=== PATIENT | female | born 1980 | race American Indian/Alaskan Native ===

== ENCOUNTER 2018-12-22 13:22 | Emergency (ER) | payer MEDICAID ==
[2018-12-22 13:54] VITALS: BP 146/71
[2018-12-22 15:12] LABS: Basophils % (Auto) 0.2 % (0.0-1.8); Eosinophils # (Auto) 0.1 K/mm3 (0.0-0.4); Eosinophils % (Auto) 0.4 % (0.0-4.3); Hematocrit 40.3 % (30.3-42.9); Hemoglobin 13.1 gm/dl (10.1-14.3); Mean Corpuscular HGB Conc 33 % (30-34); Mean Corpuscular Volume 91 fl (79-97); Monocytes # (Auto) 0.6 K/mm3 (0.0-0.8); Monocytes % (Auto) 3.8 % (0.0-7.3); Platelet Count 272 K/mm3 (140-440); Red Blood Count 4.45 M/mm3 (3.65-5.03); Red Cell Distribution Width 14.2 % (13.2-15.2)
[2018-12-22 15:35] LABS: Creatine Kinase MB 1.4 ng/mL (0.0-4.0)
[2018-12-22 15:39] LABS: Alanine Aminotransferase 16 units/L (7-56); Albumin 3.8 g/dL (3.9-5); BUN/Creatinine Ratio 11; Blood Urea Nitrogen 8 mg/dL (7-17); Hemolysis Index 2
[2018-12-22 15:40] LABS: Bilirubin,Direct < 0.2 mg/dL (0-0.2)
--- NOTE | 2018-12-22 15:56 | Cat Scan Report ---
FINAL REPORT PROCEDURE: CT HEAD/BRAIN WO CON TECHNIQUE: Computerized tomography of the head was performed without contrast material. HISTORY: head injury COMPARISON: No prior studies are available for comparison. FINDINGS: No CT evidence of intracranial mass, hemorrhage, acute territorial infarction, or hydrocephalus. The intracranial arteries are symmetric in density. Calvarium is intact. Visualized paranasal sinuses and mastoids are aerated. There is a frontal scalp laceration. IMPRESSION: No CT evidence of acute intracranial abnormality
--- NOTE | 2018-12-22 16:01 | Cat Scan Report ---
FINAL REPORT PROCEDURE: CT CERVICAL SPINE WO CON TECHNIQUE: Computerized tomography of the cervical spine was performed from the skull base to T1 wit hout contrast material. HISTORY: head injury COMPARISON: No prior studies are available for comparison. FINDINGS: The vertebral body heights and alignment are maintained. No acute fracture or subluxation is seen. No focal osseous lesions are identified. IMPRESSION: No acute abnormality is seen.
[2018-12-22] MEDS ORDERED: XYLOCAINE 1%/ EPI 1:100,000 INFILTRATI ONE (16:18)
[2018-12-22] MEDS ORDERED: BOOSTRIX IM ONE (16:19)
[2018-12-22] MEDS: TENIVAC IM ONE ×2 (16:25→16:30)
--- NOTE | 2018-12-22 16:37 | Emergency Department Report ---
ED General Adult HPI - General Chief complaint: Head Injury Stated complaint: LACERATION Time Seen by Provider: 12/22/18 14:38 Source: patient, police, EMS Mode of arrival: Wheelchair Limitations: No Limitations - History of Present Illness Initial comments: This is a 38-year-old female who states she has a bipolar disorder. Apparently she had a verbal altercation with a foreign law consultant in [facility]. This eventually led to detain him. The patient was placed in the back of the squad car. The officer stated that the patient hit her head against the window of the vehicle. This resulted in a laceration. There was no observed loss of consciousness. Patient was somewhat agitated on arrival. However she told me that she was able to calm herself down and did do so. -: Gradual Location: head Associated Symptoms: denies other symptoms - Related Data Previous Rx's Medication Instructions Recorded Last Taken Type Azithromycin [Zithromax TAB] 500 mg PO QDAY #2 tablet 10/10/18 Unknown Rx Allergies Allergy/AdvReac Type Severity Reaction Status Date / Time levofloxacin [From Levaquin] Allergy Unknown Verified 10/10/18 13:04 lorazepam [From Ativan] Allergy Unknown Verified 10/10/18 13:04 Penicillins Allergy Unknown Verified 10/10/18 13:04 risperidone [From Risperdal] Allergy Unknown Verified 10/10/18 13:04 ziprasidone [From Geodon] Allergy Unknown Verified 10/10/18 13:04 ED Review of Systems ROS: Stated complaint: LACERATION Other details as noted in HPI Constitutional: denies: chills, fever Eyes: denies: eye pain, eye discharge, vision change ENT: denies: ear pain, throat pain Respiratory: denies: cough, shortness of breath, wheezing Cardiovascular: denies: chest pain, palpitations Endocrine: no symptoms reported Gastrointestinal: denies: abdominal pain, nausea, diarrhea Genitourinary: denies: urgency, dysuria, discharge Musculoskeletal: denies: back pain, joint swelling, arthralgia Skin: denies: rash, lesions Neurological: denies: headache, weakness, paresthesias Psychiatric: as per HPI (bipolar disorder). denies: auditory hallucinations, visual hallucinations (no active hallucinosis), homicidal thoughts, suicidal thoughts Hematological/Lymphatic: denies: easy bleeding, easy bruising ED Past Medical Hx - Past Medical History Hx Psychiatric Treatment: Yes (bipolar, schizophrenia,anxiety,depression) - Surgical History Additional Surgical History: tubiligation, breast reduction - Social History Smoking Status: Current Every Day Smoker Substance Use Type: None - Medications Home Medications: Home Medications Medication Instructions Recorded Confirmed Last Taken Type Azithromycin [Zithromax TAB] 500 mg PO QDAY #2 tablet 10/10/18 Unknown Rx ED Physical Exam - General Limitations: Other (psychiatric disorder) General appearance: alert, anxious (bit agitated), obese - Head Head exam: Present: normocephalic, other (there is a 3 cm linear laceration midline forehead into subcutaneous tissue without foreign body) - Eye Eye exam: Present: normal appearance. Absent: PERRL, EOMI - ENT ENT exam: Present: mucous membranes moist - Neck Neck exam: Present: normal inspection. Absent: tenderness, meningismus - Respiratory Respiratory exam: Present: normal lung sounds bilaterally. Absent: respiratory distress - Cardiovascular Cardiovascular Exam: Present: regular rate, normal rhythm. Absent: systolic murmur, diastolic murmur, rubs, gallop - GI/Abdominal GI/Abdominal exam: Present: soft, normal bowel sounds. Absent: distended, tenderness, guarding, rebound - Extremities Exam Extremities exam: Present: normal inspection - Back Exam Back exam: Present: normal inspection - Neurological Exam Neurological exam: Present: alert, oriented X3, CN II-XII intact. Absent: motor sensory deficit - Psychiatric Psychiatric exam: Present: agitated, anxious - Skin Skin exam: Present: warm, dry, intact, normal color. Absent: rash ED Course Vital Signs 12/22/18 13:53 Temperature 97.8 F Pulse Rate 84 Respiratory 18 Rate Blood Pressure 146/71 [Left] O2 Sat by Pulse 100 Oximetry - Reevaluation(s) Reevaluation #1: The patient did not require antipsychotics or chemical sedation. She was eventually stapled without difficulty. She was medically cleared for incarceration. 12/22/18 16:37 - Laceration /Wound Repair Face Wound Location: face Wound Length (cm): 3 Wound's Depth, Shape: into muscle (into subcutaneous) Wound Explored: clean Betadine Prep?: Yes Anesthesia: Lidocaine w/ Epi Number of Sutures: 3 (3 lucille placed) Layer Closure?: No Sterile Dressing Applied?: No Progress: Good approximation and hemostasis. ED Medical Decision Making - Lab Data Result diagrams: 12/22/18 14:55 12/22/18 14:55 Laboratory Results - last 24 hr 12/22/18 12/22/18 12/22/18 14:55 14:55 14:55 WBC 14.8 H RBC 4.45 Hgb 13.1 Hct 40.3 MCV 91 MCH 30 MCHC 33 RDW 14.2 Plt Count 272 Lymph % (Auto) 7.0 L [place] % (Auto) 3.8 Eos % (Auto) 0.4 Baso % (Auto) 0.2 Lymph # 1.0 L [place] # 0.6 Eos # 0.1 Baso # 0.0 Seg Neutrophils % 88.6 H Seg Neutrophils # 13.1 H Sodium 139 Potassium 3.4 L Chloride 103.6 Carbon Dioxide 21 L Anion Gap 18 BUN 8 Creatinine 0.7 Estimated GFR > 60 BUN/Creatinine Ratio 11 Glucose 106 H Calcium 9.0 Magnesium 1.70 Total Bilirubin 0.30 Direct Bilirubin < 0.2 Indirect Bilirubin 0.1 AST 16 ALT 16 Alkaline Phosphatase 74 Total Creatine Kinase 155 H CK-MB (CK-2) 1.4 CK-MB (CK-2) Rel Index 0.9 Total Protein 7.6 Albumin 3.8 L Albumin/Globulin Ratio 1.0 Plasma/Serum Alcohol < 0.01 Critical care attestation.: If time is entered above; I have spent that time in minutes in the direct care of this critically ill patient, excluding procedure time. ED Disposition Clinical Impression: Hypokalemia Forehead laceration Qualifiers: Encounter type: initial encounter Qualified Code(s): S01.81XA - Laceration without foreign body of other part of head, initial encounter Bipolar disorder Qualifiers: Active/Remission status: currently active Current bipolar episode type: manic Current episode severity: moderate Qualified Code(s): F31.12 - Bipolar disorder, current episode manic without psychotic features, moderate Disposition: DC-01 TO HOME OR SELFCARE Is pt being admited?: No Does the pt Need Aspirin: No Condition: Stable Instructions: Laceration (ED), Minor Head Injury (ED), Hypokalemia (ED) Additional Instructions: Further care as per the group home medical staff. Lucille may be removed in approximately one week. Cleanse wound daily with hydrogen peroxide. Referrals: SAM MAZARIEGOS MD [Primary Care Provider] - 3-5 Days Time of Disposition: 16:41
[2018-12-22] MEDS ORDERED: K-DUR PO ONE (16:38)
[2018-12-22] MEDS ORDERED: XYLOCAINE 1%/ EPI 1:100,000 INFILTRATI NR (19:00)
== END 2018-12-22 17:09 | disposition home or self-care (01) ==
LOC: EEVIPCON 13:22 → ED 13:22
DX: S01.81XA Laceration without foreign body of other part of head, initial encounter (principal); F31.12 Bipolar disorder, current episode manic without psychotic features, moderate; R45.1 Restlessness and agitation; E87.6 Hypokalemia; F20.9 Schizophrenia, unspecified; F32.9 Major depressive disorder, single episode, unspecified; F17.200 Nicotine dependence, unspecified, uncomplicated; Z98.51 Tubal ligation status; W22.8XXA Striking against or struck by other objects, initial encounter; Y93.89 Activity, other specified; Y92.89 Other specified places as the place of occurrence of the external cause; Y99.8 Other external cause status
CPT/HCPCS: 12013; 36415; 70450; 72125; 80048; 80076; 82550; 82553; 83735; 85025; 90471; 90715; 99284; G0480; 80320; 90714